=== PATIENT | female | born 1975 | race Caucasian/White ===

== ENCOUNTER → 2016-12-26 | Outpatient (CLI) | payer OTHER | LOC: FIMAGING 08:33 | PROVIDERS: ATTEND Obstetrics & Gynecology | DX: O09.521 Supervision of elderly multigravida, first trimester (principal); Z3A.11 11 weeks gestation of pregnancy ==

== ENCOUNTER → 2017-02-22 | Outpatient (CLI) | payer OTHER | LOC: FIMAGING 08:08 | PROVIDERS: ATTEND Obstetrics & Gynecology | DX: O09.522 Supervision of elderly multigravida, second trimester (principal); Z3A.20 20 weeks gestation of pregnancy ==

== ENCOUNTER 2017-06-07 10:10 | Observation (INO) | payer OTHER ==
--- NOTE | 2017-06-07 12:54 | SOAPPROG ---
SOAP Progress Note Assessment/Plan: Assessment: [id number] with IUP@35-3wks no evidence of PTL previous c/s AMA cat 1 FHR Tracing Plan: d/c home RTO tomorrow for LAURYN appramandeep [facility]KC and PTL prec discussed- aware to return to hospital with changes cont PO hydration 06/07/17 14:35 06/07/17 14:39 Subjective: Pt presents to L&D with complaints of irregular contractions times 24 hr. She denies having to breathe through her contractions. She does report difficulty trying to sleep due to the contractions. She denies any leaking of fluid, vaginal bleeding. She reports positive movement. - Pending Discharge Pending Discharge Within 24 Hours: Yes Pending Discharge Date: 06/08/17 Pending Discharge Time: 11:00 Physical Exam - Physical Exam General Appearance: WD/WN, alert, no apparent distress Neck: supple Respiratory: lungs clear, normal breath sounds Cardiac/Chest: regular rate, rhythm Abdomen: non-tender, soft, other (Gravid) Pelvic Exam: other (SVE: FT/thick/high) Rectal: deferred Skin: normal color, warm/dry Extremities: normal inspection Neuro/Psych: alert, normal mood/affect, oriented x 3 ICD10 Worksheet Patient Problems: Problems Problem Status Onset Advanced maternal age in multigravida Acute uterine contractions Acute Previous section Acute Supervision of normal intrauterine in multigravida Acute - ICD10 Problem Qualifiers (1) uterine contractions (2) Supervision of normal intrauterine in multigravida (3) Previous section (4) Advanced maternal age in multigravida
--- NOTE | 2017-06-07 14:40 | OBGCSDC ---
General Delivery Information - General Info : 2 Para: 1 Abortions: 0 Admission Date: 06/07/17 Data SAUL: 07/11/17 Gestational Age: 35 week(s) and 1 day(s) Discharge Information - Discharge Information Condition: Good Instruction/Follow Up: See Instruction Sheet (RTO tomorrow 06/08/17)
== END 2017-06-07 14:15 | disposition home or self-care (01) ==
LOC: FLD 10:10
PROVIDERS: ADMIT Advanced Practice Midwife; ATTEND Advanced Practice Midwife
DX: O09.523 Supervision of elderly multigravida, third trimester (principal); O34.219 Maternal care for unspecified type scar from previous cesarean delivery; Z3A.35 35 weeks gestation of pregnancy; O60.03 Preterm labor without delivery, third trimester
CPT/HCPCS: G0378 ×2

== ENCOUNTER 2017-07-02 09:03 | Inpatient (IN) | payer OTHER ==
--- NOTE | 2017-07-13 18:02 | GHP ---
[f rep st] HISTORY AND PHYSICAL DATE OF ADMISSION: 07/16/17. ADMITTING DIAGNOSES: 1. Intrauterine at 40 weeks and 5 days. 2. Previous section. 3. Requests permanent sterilization, family status is complete. HISTORY OF PRESENT ILLNESS: Patient is a 42-year-old, 2, para 1-0-0-1 at 40 weeks and 5 days with estimated due date 07/11/2017, and this is by an 8- week ultrasound. Patient has a history of a prior , secondary to arrest of dilatation and descent at 9 cm. Patient presents for repeat C- section and desires permanent sterilization, family status is complete. Patient states good movement. Denies any leakage of fluid, vaginal bleeding, or contractions. Patient has good care a presented at [facility] at 8 weeks. is complicated by advanced maternal age. All genetic testing was negative. A 20-week, Level II ultrasound was done with [facility]. There was a low-lying placenta, marginal previa, with an estimated weight in 51 percentile. The placental location was followed up by ultrasound and no marginal previa was seen. Patient developed anemia of and is taking iron. She did receive Tdap. She had a late ultrasound that showed an estimated weight 76 percentile and normal RHETT. The patient has been getting NSTs twice weekly secondary to advanced maternal age. GBS culture is negative. PAST OB HISTORY: In January 2013, she delivered a viable male via C- section weighing 8 pounds 10 ounces at 40 weeks and 6 days secondary to protracted labor from arrest of descent and dilatation at 9 cm. 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 Cycles are every 24-31 days. LMP 2016. Positive test 11/14/2016. Patient does have a history of abnormal Pap smear, HPV years ago, and has been normal since. Denies any other exposure to sexually transmitted diseases. MEDICATIONS: Include vitamin, DHA, ubiquinol, ROSIE. ALLERGIES: No known drug allergies. PAST MEDICAL HISTORY: Unremarkable. PAST SURGICAL HISTORY: Previous , knee surgery, wisdom teeth extraction. FAMILY HISTORY: Maternal grandmother, ovarian cancer. Paternal grandfather, Alzheimer's. SOCIAL HISTORY: Patient is . She lives with her and their son. 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 Patient denies any alcohol, tobacco, or illicit drug use. LABS: A positive, antibody negative, RPR nonreactive, rubella immune, hepatitis B surface antigen negative. HIV negative. Trio screens negative in 2012. Urine culture negative. Pap, gonorrhea, and chlamydia cultures negative, in November 2016. Innatal screen negative. H and H 12.4 and 35.5. One-hour Glucola 89. GBS culture is negative. OBJECTIVE: VITAL SIGNS: On admission, vital signs are stable. GENERAL APPEARANCE: Patient is a well-nourished, well-developed female, alert and oriented x3, in no apparent distress. CARDIOVASCULAR: Regular rate and rhythm. LUNGS: Clear to auscultation bilaterally. ABDOMEN: Gravid, soft, nontender. PELVIC: Deferred. EXTREMITIES: Normal to inspection without calf tenderness. ASSESSMENT/PLAN: Patient is a 42-year-old, 2, para 1-0-0-1 at 40 weeks and 5 days with a prior section and request for permanent sterilization , family status is complete. 1. Admit to Labor and Delivery for scheduled elective repeat section. 2. Surgical consents were obtained in the office. We discussed risks, benefits , alternatives of the procedure, including but not limited to, bleeding, infection, and damage to surrounding organs. Patient also understands permanent nature of removing both tubes. Patient understands all risks at this time, and wants to proceed with surgery. 3. Antibiotics community integration specialist to OR. 4. Sequential compression devices for deep venous thrombosis prophylaxis. /[id number]/MODL MTDD
[2017-07-16] MEDS ORDERED: CITRIC ACID/SODIUM CITRATE 30 ML UDCUP PO ONE (06:02)
[2017-07-16] MEDS ORDERED: ceFAZolin 2 GM/DEXTROSE 100 ML IV ONE (06:02)
[2017-07-16] MEDS ORDERED: LR 500 ML IV ONE (06:02)
[2017-07-16 06:14] LABS: PLATELET COUNT 232 10^3/uL (150-400)
[2017-07-16] MEDS ORDERED: ceFAZolin 2 GM/SWFI 2 GM/20 ML SYR IVP ONE ×2 (06:15→07:30)
[2017-07-16] MEDS: LR 1,000 ML IV SCH ×2 (07:30→13:25)
[2017-07-16] MEDS ORDERED: PHENYLEPHRINE HCL 100 MCG/ML SYR ONE (07:32)
[2017-07-16] MEDS ORDERED: BUPIVACAINE/DEXTROSE 7.5MG/ML 2 ML SPINAL AMP SP ONE (07:32)
[2017-07-16] MEDS ORDERED: DEXAMETHASONE 4 MG/ML VIAL ONE ×2 (07:32)
[2017-07-16] MEDS ORDERED: METOCLOPRAMIDE 10 MG/2 ML VIAL ONE (07:32)
[2017-07-16] MEDS ORDERED: OXYTOCIN 100 UNITS/10 ML VIAL ONE (08:45)
[2017-07-16] MEDS ORDERED: fentaNYL 100 MCG/2 ML INJ ONE ×2 (08:51→08:53)
--- NOTE | 2017-07-16 09:24 | PDANEPAE ---
ANE Past Medical History - Pulmonary History Hx Sleep Apnea: No Sleep Apnea Screening Result - Last Documented: Negative ANE Review of Systems Review of Systems: ANE Patient History - Allergies Allergies/Adverse Reactions: No Known Allergies Allergy (Unverified 04/12/09 12:31) - Home Medications Home Medications: Miscellaneous Medical Supply [NO HOME MEDS] 1 ea MISC AD 01/03/13 [Last Taken Unknown] - NPO status NPO Since - Liquids (Date): 07/15/17 NPO Since - Liquids (Time): 19:30 NPO Since - Solids (Date): 07/15/17 NPO Since - Solids (Time): 19:30 ANE Labs/Vital Signs - Labs Result Diagrams: 07/16/17 05:40 - Vital Signs Blood Pressure: 122/77 Heart Rate: 72 Respiratory Rate: 18 O2 Sat (%): 98 Height: 172.72 cm Weight: 79.379 kg ANE Physical Exam - Airway Neck exam: FROM Mallampati Score: Class 1 Mouth exam: normal dental/mouth exam - Pulmonary Pulmonary: no respiratory distress - Cardiovascular Cardiovascular: regular rate and rhythym - ASA Status ASA Status: I ANE Anesthesia Plan Anesthesia Plan: spinal Urgent/Emergent Case: Amanda macias completed preop but documented later for safe timely pt care (no computer in OR to doccument pre op)
[2017-07-16] MEDS ORDERED: PHENYLEPHRINE HCL 100 MCG/ML SYR IVP PRN (09:25)
[2017-07-16] MEDS ORDERED: ONDANSETRON 4 MG/2 ML VIAL IVP PRN ×2 (09:25)
[2017-07-16] MEDS ORDERED: MEPERIDINE 25 MG/ML SYR IVP PRN (09:25)
[2017-07-16] MEDS ORDERED: fentaNYL 100 MCG/2 ML INJ IVP PRN (09:25)
[2017-07-16] MEDS ORDERED: NALOXONE HCL 0.4 MG/ML INJ IVP PRN (09:25)
--- NOTE | 2017-07-16 09:25 | POSTANESTH ---
Post Anesthetic Evaluation Cardiovascular Status: Similar to Pre-Op Cond Respiratory Status: Similar to Pre-op Cond. Level of Consciousness/Mental Status: Mildly Sleepy, Arousable Pain Control: Adequate, Prn Tx Ordered Nausea/Vomiting Control: Adequate, Prn Tx Ordered Complications Possibly Related to Anesthesia: None Noted
[2017-07-16] MEDS ORDERED: KETOROLAC 30 MG/1 ML SDV ONE (09:30)
[2017-07-16] MEDS: KETOROLAC 30 MG/1 ML SDV IVP PRN ×3 (09:30→21:40)
[2017-07-16] MEDS ORDERED: LACTULOSE 20 GM/30 ML UDCUP PO PRN (09:36)
[2017-07-16] MEDS ORDERED: POLYETHYLENE GLYCOL 3350 17 GM PKT PO PRN (09:36)
[2017-07-16] MEDS ORDERED: BISACODYL 10 MG SUPP PR PRN (09:36)
[2017-07-16] MEDS ORDERED: MAGNESIUM HYDROXIDE 30 ML UDCUP PO PRN (09:36)
[2017-07-16] MEDS ORDERED: DOCUSATE SODIUM 100 MG CAP PO PRN (09:36)
[2017-07-16] MEDS ORDERED: SIMETHICONE 80 MG TAB CHEW PO PRN (09:36)
[2017-07-16] MEDS ORDERED: PROMETHAZINE HCL 25 MG/ML INJ IVP PRN (09:36)
--- NOTE | 2017-07-16 09:53 | OBDEL ---
Info Type: Repeat Presentation at Delivery: Vertex L&D Analgesia/Anesthesia Type: Spinal GBS+: No Intrapartum Medications: Discontinued Medications Generic Name Dose Route Start Last Admin Trade Name Marisel PRN Reason Stop Dose Admin Citric Acid/Sodium Citrate 30 ml 07/16/17 06:02 07/16/17 07:28 Bicitra PO 07/16/17 06:03 30 ml ONCALL ONE Administration Lactated Ringer's 500 mls @ 0 mls/hr 07/16/17 06:02 07/16/17 07:33 Lr IV 07/16/17 06:03 500 mls ONCE ONE Administration As Directed Cefazolin Sodium 2 gm in 20 mls @ 200 mls/hr 07/16/17 07:30 07/16/17 07:32 Cefazolin Syringe IVP 07/16/17 07:35 20 mls ONCALL ONE Administration - Infant Care Provider Small Animal Veterinarian/ASSOCIATE PROFESSOR OF COMMUNICATION: Laura Silva Indications for Delivery: Elective (Prior c/s; request for permanent sterilization-family status is complete) Operative Report - Delivery Pre-op Diagnoses: IUP @ 40 5/7 weeks with previous c/s; request for permanent sterilization; family status is complete Post-op Diagnoses: IUP @ 40 5/7 weeks with previous c/s; request for permanent sterilization; family status is complete History of Prior Section: Yes Number of Prior Sections: 1 Nulliparous Prior to Delivery: No Indications for Prior Section: Arrest of Descent, Arrest of Dilation Indications for Current Section: Elective/Repeat Procedure: Scheduled, Low Transverse, Tubal Ligation (Modified Haresh) Surgeon: Dana Ennis Occupational Health Physician: Val Aguilera Anesthesiologist: Jacques Escamilla Complications: None Findings: A viable female infant born in cephalic presentation at 0819 with 8 and 9 Apgars weight 3956 gms. No nuchal cord noted. Cord clamping was delayed x 60 sec. Cord blood was obtained. Placenta delivered manually intact with 3-vc. Grossly normal appearing uterus, tubes and ovaries. Modified Haresh method was used for BTL. Pedicles hemostatic. No complications. Specimen(s)/Path: Fallopian Tube(s) IV Fluid (ml): 3,300 EBL: 800 cc UO: 300 cc clear [place] Data SAUL: 07/11/17 Gestational Age: 40 week(s) and 5 day(s) [place] Delivery Date: 07/16/17 Delivery Time: 08:19 Sex of : Female Weight (gm): 3956 g Score (1 Min): 8 Score (5 Min): 9 ICD10 Worksheet Patient Problems: Problems Problem Status Onset Sterilization Acute Advanced maternal age in multigravida Acute uterine contractions Acute Previous section Acute Supervision of normal intrauterine in multigravida Acute - ICD10 Problem Qualifiers (1) Sterilization
--- NOTE | 2017-07-16 17:04 | GOP ---
[f rep st] OPERATIVE REPORT DATE OF OPERATION: 07/16/2017 SURGEON: Dana Ennis DO WATER PUMP INSTALLER: Val Aguilera CNM. ANESTHESIA: Spinal anesthesia. ANESTHESIOLOGIST: Dr. Escamilla. PREOPERATIVE DIAGNOSIS: Intrauterine at 40 weeks and 5 days, with a previous section x1. Request for permanent sterilization. Family status is complete. POSTOPERATIVE DIAGNOSIS: Intrauterine at 40 and 5/7 weeks with previous section. The patient requests permanent sterilization. Family status complete. PROCEDURE PERFORMED: Repeat low transverse section. Bilateral tubal ligation via modified [place]. FINDINGS: A viable female infant, in cephalic presentation, born at 8:19, with 8 and 9 Apgars, weighing 3956 g. No nuchal cord noted. Cord clamping was delayed for 60 seconds. Cord blood was obtained. Placenta delivered manually, intact with 3-vessel cord. Grossly normal-appearing uterus, tubes, and ovaries. A modified [place] method was used for bilateral tubal ligation. Bilateral salpingectomy was not performed secondary to risk of bleeding and prominent vessels. Pedicles appeared hemostatic. SPECIMENS: Portions of bilateral tubes. ESTIMATED BLOOD LOSS: 800 cc. INDICATIONS: The patient is a 42-year-old 2, para 1-0-0-1 at 40 weeks and 5 days, based on 8-week ultrasound. She has a history of a prior secondary to arrest of dilatation, and descent at 9 cm. The patient presents for repeat . Desires permanent sterilization at this time, states family status is complete. Discussed risks, benefits and alternatives of the procedure including but not limited to, bleeding, infection, damage to surrounding organs, as well as the permanent nature of sterilization. The patient understands all risks at this time, and wants to proceed with the surgery. She was properly consented. DESCRIPTION OF PROCEDURE: Patient was taken to the operating room where she was given spinal anesthesia without difficulty. She was prepped and draped in the usual sterile manner, placed in supine position with a leftward tilt. A Baker catheter was placed in her bladder. After adequate anesthesia was assured , a Pfannenstiel skin incision was made at the previous scar just superior to it. Incision was carried down to the layer of fascia with the Bovie. The fascia was incised in the midline. Fascial incision was then extended laterally with the Gardner scissors. Superior aspect of fascial incision was grasped with Akash clamps, elevated, and the rectus muscles dissected off sharply. Inferior aspect was then grasped with Akash clamps, elevated, and the rectus muscles were dissected off sharply. Rectus muscles were then in the midline. Peritoneum was visualized and entered bluntly, and extended superiorly and inferiorly with good visualization of the bladder. Bladder blade was then inserted. The vesicouterine peritoneum was then grasped with the pickups, entered with Metzenbaum scissors. Incision was extended laterally and bladder flap was created digitally. Bladder blade was then reinserted. A low transverse uterine incision was then made with a knife. The incision was extended anteriorly and posterior digitally. There was clear amniotic fluid noted upon entry into the amniotic sac. The infant was noted to be in cephalic presentation. The infant was delivered without difficulty and the mouth and nose were bulb suctioned. Delayed cord clamping occurred x 60 seconds. The cord was then clamped x2, cut, and the infant was handed off to awaiting nurse practitioner. Cord blood was obtained and sent. The placenta was then removed manually, intact with 3-vessel cord. Uterus was then exteriorized and cleared of all clots and debris. Uterine incision was then repaired with 0 Vicryl in a running, locked fashion. Hemostasis was noted. A 2nd imbricating layer of suture was performed with 0 Vicryl. Hemostasis was noted. At this time, we turned our attention to the tubes. The left fallopian tube was grasped with a Cecilia clamp near the distal 2/3 portion and a knuckle of tube was then suture ligated with 0 chromic and then cut and removed. The lumen of the fallopian tube was then cauterized for hemostasis. A similar procedure was done on the right side, and portion of the right tube was removed. Pedicles did appear hemostatic. Uterus was then returned to the abdomen. The gutters were cleared of all clots and debris. Reinspection of the uterine incision revealed oozing, so a figure- of-eight stitch of 0 Vicryl was used as well as Pradip, and hemostasis was achieved. The rectus muscle was then reapproximated with 3-0 Vicryl, inverted mattress fashion. The fascia was then closed with 0 Vicryl in a running fashion. Hemostasis was noted. The skin was then closed with 4-0 Vicryl on a Jose Alberto needle. Patient tolerated the procedure well, no complications noted. Sponge, lap, needle, and instrument count correct x2. Patient was then taken to recovery room in stable condition. IV FLUIDS: 3300 cc of LR. URINE OUTPUT: 300 cc of clear urine at the end of the procedure. /[id number]/MODL MTDD
[2017-07-17] MEDS: HYDROCODONE/APAP 5/325 TAB PO PRN ×5 (01:42→20:04)
[2017-07-17] MEDS: KETOROLAC 30 MG/1 ML SDV IVP PRN (03:32)
[2017-07-17] MEDS: SENNOSIDES/DOCUSATE SODIUM TAB PO SCH ×3 (03:36→22:05)
[2017-07-17] MEDS: IBUPROFEN 600 MG TAB PO PRN ×3 (09:43→21:53)
--- NOTE | 2017-07-17 19:23 | OBPP ---
Progress Note Assessment/Plan: Assessment: 42 y/o POD #1 s/p Rpt LTCS and BTL doing well. Plan: Pt may shower. Ambulate with assistance. Routine POC. Pt may wish to d/c home tomorrow. 07/17/17 19:21 Subjective/ Course: 07/17/17 19:20 Pt is doing well tonight. She has good pain control on po meds. She is ambulating, voiding without difficulty. Breast feeding well and baby is doing well. Objective: 07/17/17 15:45 Patient ABO/Rh A POSITIVE 07/16/17 05:40 Temp Pulse Resp BP Pulse Ox 36.8 C 80 18 109/69 98 07/17/17 16:04 07/17/17 16:04 07/17/17 16:04 07/17/17 16:04 07/17/17 16:04 Uterine Position/Fundal Height: Umbilicus -2 Uterine Tone: Firm Physical Exam - Physical Exam General Appearance: alert, no apparent distress Neck: non-tender, full range of motion, supple Respiratory: chest non-tender, lungs clear, normal breath sounds Cardiac/Chest: regular rate, rhythm Abdomen: incision (c/d/i) Extremities: swelling (no), Marta's sign (neg)
[2017-07-18] MEDS: HYDROCODONE/APAP 5/325 TAB PO PRN ×6 (00:02→20:37)
[2017-07-18] MEDS ORDERED: LIDOCAINE 1% 300 MG/30 ML SDV ONE (02:51)
[2017-07-18] MEDS ORDERED: TERBUTALINE SULFATE 1 MG/ML VIAL ONE (02:51)
[2017-07-18] MEDS ORDERED: OLIVE OIL 118 ML BTL ONE (02:51)
[2017-07-18] MEDS ORDERED: OXYTOCIN 10 UNIT/ML VIAL ONE (02:51)
[2017-07-18] MEDS ORDERED: MISOPROSTOL 200 MCG TAB ONE (02:52)
[2017-07-18] MEDS: IBUPROFEN 600 MG TAB PO PRN ×4 (03:53→22:41)
[2017-07-18] MEDS: SENNOSIDES/DOCUSATE SODIUM TAB PO SCH ×2 (09:45→21:00)
[2017-07-18] MEDS ORDERED: DIPHENOXYLATE/ATROPINE LOMOTIL 1 TAB PO PRN (09:46)
--- NOTE | 2017-07-18 15:22 | OBPP ---
Progress Note Assessment/Plan: Assessment: POD 2 s/p RCS, BTL Diarrhea - c/w viral and improving Plan: Routine care 07/18/17 15:17 Subjective/ Course: 07/17/17 19:20 Pt is doing well tonight. She has good pain control on po meds. She is ambulating, voiding without difficulty. Breast feeding well and baby is doing well. 07/18/17 15:22 Pt doing better. had diarrhea since approx noon yesterday. wasn't really feeling appetite and has had minimal intake. Really feeling better and no diarrhea since this am and luigi reg lunch. Pain control is good with Green and ibu. Baby has been latching well. Mild cramps. bld is light and urinating fine. Objective: 07/17/17 15:45 Patient ABO/Rh A POSITIVE 07/16/17 05:40 Temp Pulse Resp BP Pulse Ox 36.7 C 74 16 101/64 94 07/18/17 10:00 07/18/17 10:00 07/18/17 10:00 07/18/17 10:00 07/18/17 10:00 Uterine Position/Fundal Height: Umbilicus -1 Uterine Tone: Firm Physical Exam - Physical Exam Abdomen: non-tender (approp post op tenderness), soft, other (FF at umb -1, incision CDI) Extremities: non-tender, pedal edema (mild) Skin: normal color, warm/dry Neuro/Psych: alert, normal mood/affect
[2017-07-19] MEDS: HYDROCODONE/APAP 5/325 TAB PO PRN ×4 (00:52→14:50)
[2017-07-19] MEDS: IBUPROFEN 600 MG TAB PO PRN ×2 (05:02→11:45)
[2017-07-19 09:32] VITALS: BP 117/74; PULSE 79; RESP 17; TEMP 98; O2SAT 95
[2017-07-19] MEDS: SENNOSIDES/DOCUSATE SODIUM TAB PO SCH (10:06)
--- NOTE | 2017-07-19 14:54 | OBGCSDC ---
General Delivery Information - General Info : 2 Para: 2 Abortions: 0 Type: Repeat L&D Analgesia/Anesthesia Type: Spinal Admission Date: 07/16/17 Labs: Patient ABO/Rh A POSITIVE 07/16/17 05:40 Hct 37.1 % (38.0-47.0) L 07/17/17 15:45 - Hospital Course : 07/17/17 19:20 Pt is doing well tonight. She has good pain control on po meds. She is ambulating, voiding without difficulty. Breast feeding well and baby is doing well. 07/18/17 15:22 Pt doing better. had diarrhea since approx noon yesterday. wasn't really feeling appetite and has had minimal intake. Really feeling better and no diarrhea since this am and luigi reg lunch. Pain control is good with [place] and ibu. Baby has been latching well. Mild cramps. bld is light and urinating fine. 07/19/17 17:25 S) Pt doing well, reports min pain and bleeding. she is ambulating and voiding without difficulty. Reports +BM. She is . She desires discharge home today. O) VSS, afebrile constitutional: WNWF, A&Ox3 HEENT: normocephalic, atraumatic, supple Heart: RRR, No murmur Chest: CTA-B Abdomen: Soft, nontender incision: C/D/I Uterus: Firm at U-1 Lochia: Minimal rubra Perineum: Intact Extremities: Trace edema, and negative Marta's sign Neuro: Grossly normal A) 42-year-old S/P repeat c/s POD#3 P) Discharge home today Continue Pelvic rest x6wks Discussed danger signs (infection, preeclampsia, depression, heavy bleeding, etc ) RTO in 2/4/6 weeks 07/19/17 17:28 - Delivery Providers Surgeon: Dana Ennis Mainframe Developer: Val Aguilera Anesthesiologist: Jacques Escamilla - Delivery Number of Prior Sections: 1 Indications for Current Section: Elective/Repeat Surgical Procedures: Scheduled, Low Transverse, Tubal Ligation (Modified Haresh ) Intra-op Complications: None EBL: 800 cc UO: 300 cc clear [place] Data SAUL: 07/11/17 Gestational Age: 41 week(s) and 1 day(s) [facility] Delivery Date: 07/16/17 Delivery Time: 08:19 Sex of Infant: Female Weight (gm): 3956 g Score (1 Min): 8 Score (5 Min): 9 Discharge Information - Discharge Information Prescriptions: Hydrocodone/APAP 5/325 [[place] 5/325 (*)] 1 - 2 tab PO Q4HRS PRN #30 tab PRN Reason: Pain, Moderate Ibuprofen [Motrin (*)] 600 mg PO Q6HRS PRN #60 tab PRN Reason: Inflammation Docusate Sodium [Colace 100 MG (*)] 100 mg PO BID PRN #60 cap PRN Reason: Constipation Condition: Good Instruction/Follow Up: Two Weeks, Four Weeks, Six Weeks
== END 2017-07-19 18:00 | disposition home or self-care (01) | DRG 766 ==
LOC: FLD 07-16 05:29 → FOB 07-16 11:35
PROVIDERS: ADMIT Obstetrics & Gynecology; ATTEND Obstetrics & Gynecology
DX: O34.219 Maternal care for unspecified type scar from previous cesarean delivery (principal); Z3A.40 40 weeks gestation of pregnancy; R19.7 Diarrhea, unspecified; Z30.2 Encounter for sterilization; Z37.0 Single live birth
CPT/HCPCS: J0690; J1100; J1885; J2270; J2370; J2405; J2550; J2590; J2765; J3010; J3105